=== PATIENT | female | born 1965 | race Caucasian/White ===

== ENCOUNTER 2016-04-27 01:25 | Emergency (ER) | payer SELFPAY ==
[~2016-04-27] VITALS: Ht 154.9 cm; Wt 77.0 kg
[~2016-04-27 01:25] MED LIST: CIPR500T2 PO; [UNRECOGNIZED DRUG - CODE] PO
[2016-04-27 01:29] VITALS: BP 192/100; PULSE 69; RESP 16; TEMP 97.8; O2SAT 99
[2016-04-27] MEDS ORDERED: RANI300T PO (01:43)
[2016-04-27] MEDS ORDERED: ATEN25TA PO (01:43)
--- NOTE | 2016-04-27 01:49 | PD ---
HPI Chief Complaint: Skin Problem Time Seen by Provider: 01:47 Travel History International Travel<30 days: No Contact w/Intl Traveler<30days: No Traveled to known affect area: No History of Present Illness HPI 50 year-old female presents to the emergency department for evaluation what she believes may be bug bed bites. Patient states she has been staying at a friend' s house and has noticed these blanchable, erythematous lesions on her extremities and trunk. She reports no other new exposures. No fever or chills. States that they itch and burn. She has no other symptoms to report. PFSH Past Medical History Cardiovascular Problems: Yes (HTN, MVP) Diminished Hearing: No GERD: Yes Hypertension: Yes Tetanus Vaccination: < 5 Years Influenza Vaccination: No ?: Not LMP: TUBAL Past Surgical History Abdominal Surgery: Yes (HERNIA) Section: Yes Social History Alcohol Use: Yes (ONCE A WEEK ) Tobacco Use: Yes (1PPD FOR 20 YEARS ) Substance Use: No Allergies-Medications (Allergen,Severity, Reaction): Coded Allergies: Penicillin (Verified Allergy, Severe, INCREASE HEART RATE , 04/27/16) PT STS SHE NOW IS NOT ALLERGIC TO PENICILLIN Reported Meds & Prescriptions Reported Meds & Active Scripts Active Reported Ranitidine (Ranitidine HCl) 300 Mg Tab 300 Mg PO HS Atenolol 25 Mg Tab 25 Mg PO BID Review of Systems Except as stated in HPI: all other systems reviewed are Neg Physical Exam Narrative GENERAL: Well-nourished, well-developed female patient in no acute distress SKIN: Warm and dry. Full, scattered, subcentimeter-sized, blanchable, wheels on the upper extremities and trunk. No vesicle or pustule formation. HEAD: Normocephalic. EYES: No scleral icterus. No injection or drainage. NECK: Supple, trachea midline. No JVD or lymphadenopathy. CARDIOVASCULAR: Regular rate and rhythm without murmurs, gallops, or rubs. RESPIRATORY: Breath sounds equal bilaterally. No accessory muscle use. MUSCULOSKELETAL: No cyanosis, or edema. BACK: Nontender without obvious deformity. No CVA tenderness. Data Data Last Documented VS Vital Signs Date Time Temp Pulse Resp B/P Pulse Ox O2 Delivery O2 Flow Rate FiO2 04/27/16 01:44 18 04/27/16 01:29 97.8 69 192/100 99 Room Air Orders Diphenhydramine Inj (Benadryl Inj) (04/27/16 02:00) Dexamethasone Inj (Decadron Inj) (04/27/16 02:00) MDM Medical Decision Making Medical Screen Exam Complete: Yes Emergency Medical Condition: Yes Medical Record Reviewed: Yes Differential Diagnosis Insect bite versus urticaria versus contact dermatitis versus folliculitis versus cellulitis Narrative Course 50 year-old female presents to emergency department for evaluation. Physical exam is consistent with insect bites, pattern is very consistent with a bed bug bite however do not see an insect I cannot confirm this. I have treated the patient here in emergency department with Benadryl and steroid. I have encouraged continuing Benadryl outpatient and to follow-up with primary care provider. I have explained to the patient that unless the bedbugs are gone or she is no longer where they are that she may continue to get bitten. She verbalizes understanding. She agrees to return immediately with any acute worsening of symptoms. Diagnosis Primary Impression: Insect bite of multiple sites with local reaction Referrals: Primary Care Physician Patient Instructions: Bed Bugs (ED), General Instructions Additional Instructions: If indeed these are bedbugs, he will need to get your house treated to prevent reoccurrence Continue Benadryl asked her to the package as needed for itching and/or rash Follow-up with primary care provider Return immediately to the emergency department with any acute worsening of symptoms Med/Other Pt SpecificInfo: No Change to Meds Disposition: 01 DISCHARGE HOME Condition: Stable LauraPanchoDeepabonnie PASTRANA Apr 27, 2016 01:49
[2016-04-27] MEDS ORDERED: diphenhydrAMINE HCL 50 MG/ML VIAL IM ONE (02:00)
[2016-04-27] MEDS ORDERED: DEXAMETHASONE SOD PHOS 20 MG/5 ML VIAL IM ONE (02:00)
== END 2016-04-27 02:18 | disposition home or self-care (01) ==
LOC: NEPB 01:25
DX: S40.862A Insect bite (nonvenomous) of left upper arm, initial encounter (principal); S40.861A Insect bite (nonvenomous) of right upper arm, initial encounter; S20.96XA Insect bite (nonvenomous) of unspecified parts of thorax, initial encounter; I10 Essential (primary) hypertension; F17.200 Nicotine dependence, unspecified, uncomplicated; Z86.79 Personal history of other diseases of the circulatory system; Z87.19 Personal history of other diseases of the digestive system; W57.XXXA Bitten or stung by nonvenomous insect and other nonvenomous arthropods, initial encounter
CPT/HCPCS: 96372; 99283; J1100; J1200